=== PATIENT | male | born 1950 | race Caucasian/White ===

== ENCOUNTER 2025-01-11 14:37 | Inpatient (IN) | payer OTHER, MEDICARE, SELFPAY ==
[2025-01-11 11:13] VITALS: BP 158/83
--- NOTE | 2025-01-11 11:58 | ED.GENMED ---
History of Present Illness
General
Chief Complaint: Skin Problem
Source: patient and family
Time Seen by Provider: 01/11/25 11:39
History of Present Illness
History of Present Illness:
This patient is a 74-year-old male with a history of peripheral vascular disease, recent visit to an outside emergency department for leg ulcer, reportedly no longer taking antibiotic, who was sent to the emergency department by a physician family
member because he was told that his cultures were resulted and that he should be in the emergency department. Patient notes mild chills but denies fever, sweats, nausea, vomiting, anorexia, chest pain, shortness of breath. He denies new numbness
or tingling. He does note pain throughout the left lower extremity which is not abrupt in onset. Patient lives at home and typically uses a walker.
Past History
Past History
ED Past Medical History: HTN, Hypercholesterolemia, Hypothyroidism and Other (Fractured ribs with Pneumo due to a fall, severe , peripheral vascular disease, CAD, GI bleed, peptic ulcer disease, a flutter, heart failure)
ED Past Surgical History: Appendectomy
Social History
Tobacco: Former smoker
Alcohol: Daily (formerly heavy)
Drug: None
Personal:
Living: with family
Employment: Retired
Family History
Family History: Other (reviewed and non-contributory)
Phy Exam
Physical Exam
Physical Exam:
GENERAL: Alert , in no apparent distress
EYE: pupils equal and reactive
NECK: Supple, no significant adenopathy.
ENT: o/p clr, mmm.
CARDIAC: Regular rate and rhythm, loud systolic murmur .
LUNGS: Equal breath sounds bilaterally, no acute respiratory distress, mild rales notes bibasilar
ABDOMEN: Soft, without focal tenderness, no r/g, no cvat
NEUROLOGICAL: Alert and oriented, no focal neuro deficits
SKIN: Warm and dry, 7 X 9 cm shallow ulcer with min clear discharge, no purulence/crepitus/bullae. Associated erythema noted bilat ant tib/fib area with chronic venous changes.
MUSCULOSKELETAL: bilat le edema
PSYCH: Normal and appropriate interaction.
Course
Orders/Labs/Results
Orders:
Orders
01/11/25 Lunch
2 Gram Sodium [Sodium, 2 Gram]
At Your Request: Full Participation
Does patient need a safe tray?: No
01/11/25 12:46
Piperacillin/Tazo 3.375 Gram [Zosyn] 3.375 gram in 50 ml IV NOW
Vancomycin [Vancocin] 2,000 mg 0.9% Sodium Chloride 500 ml [Nss] 500 ml IV NOW
01/11/25 12:53
Alcohol Urgent
Basic Metabolic Panel Urgent
Complete Blood Count/No Diff Urgent
Hgntm-Jzeu-Tadimik Urgent
01/11/25 13:08
Add On- LAB Urgent
Tests Added?: etoh
01/11/25 14:08
Admit/Transfer Patient As Directed
Co-Sign Provider:
Level of Care: Inpatient admission
Assign to:: Telemetry
Physician / Group: Raymond
Diagnosis: Cellulites
Reason for Telemetry: Subacute Heart Failure
Date to Stop Telemetry: 01/13/25
Time to Stop Telemetry: 11:00
Reason for Hospitalization: Above
Expected length of stay greater than two midnights?: Yes
ELOS- Estimated Length of Stay in days: 2
I certify the patient meets the requirements for IP care: Yes
PRN Pain Medication Management As Directed
May give lesser potent ordered pain med per pt: Yes
preference::
Protocol:: Medication orders for pain may be administered in a
manner that supports deferring to patient preference
when the pt is:
-Requesting an ordered lesser potent pain medication.
Least to most potent pain medications are defined as:
acetaminophen < NSAID < tramadol < opioids (morphine,
oxycodone, hydromorphone).
- Requesting a lesser dose of the same medication IF
ORDERED.
- Requesting a less intrusive route of administration
if both routes are prescribed by the provider (PO <
IV).
01/11/25 14:11
Code Status As Directed
Resuscitation Status: Full Code
01/11/25 14:27
Cpap [RESP] Routine
Patient to use own unit?: Yes
Set Pressure (cm H2O): 12
Oxygen Liter Flow: 5
01/11/25 14:32
Add On- LAB Routine
Tests Added?: lft
01/11/25 15:09
Blood Culture Q30M
RINA Source: Blood/Venous
Specimen Description:
Blood Culture Q30M
RINA Source: Blood/Venous
Specimen Description:
01/11/25 16:21
0.9% Sodium Chloride [Nss (Preservative Free)] See Protocol IV PRN PRN
FOLic ACID [Folvite] 1 mg PO DAILY
FOLic ACID [Folvite] 1 mg 0.9% Sodium Chloride 50 ml [Nss] 50 ml IV DAILYPRN
Gabapentin [Neurontin] 300 mg PO TID
Lorazepam [Ativan] 1 mg IV Q1HPRN PRN
Lorazepam [Ativan] 1 mg PO Q2HPRN PRN
Lorazepam [Ativan] 2 mg IV Q1HPRN PRN
Losartan [Cozaar] 50 mg PO DAILY
Potassium Chloride [KCl] 10 meq PO DAILY
Tamsulosin [Flomax] 0.4 mg PO DAILY
01/11/25 16:21
ECG [Electrocardiogram (*1)] Routine
Reason for Study: Atrial Fibrillation
Case Management Consult Once
Case Management Consult: Other
Comment: Substance abuse counseling
DIETARY IP CONSULT Routine
Reason for Consult: Nutrition support, possible refeeding guidelines
INFECTIOUS DISEASE CONSULT Routine
Consulting Provider: Noemi Quiroz
Was physician already notified: Yes
WOUND/OSTOMY CONSULT Routine
Reason for Consult: LE wound
WOUND/OSTOMY CONSULT Routine
Reason for Consult: left leg wound
MSAS SCORE As Directed
MSAS Score 0-4: Repeat MSAS every 2 hours until 0-4 for three consecutive assessments, then every 4 hours x 48
hours.
MSAS Score 5-7: For MILD withdrawl symptoms. Repeat MSAS and RASS every 2 hours
MSAS Score 8-11: For MODERATE withdrawal symptoms. Repeat MSAS and RASS every 1 hour. Consider ICU or IMU
level of care.
MSAS Score > 11: For SEVERE withdrawal symptoms. Repeat MSAS and RASS every 1 hour. Notify provider, consider
ICU level of care.
MSAS Additional Instructions: If no improvement or no decrease in score from severe to moderate within 12
hours, consult psychiatry
MSAS Notify Provider: Notify provider if patient requires more than 10 mg of Lorazepam in eight hour period.
01/11/25 17:00
Pantoprazole [Protonix] 40 mg PO DAILY
01/11/25 18:03
Alcohol Urgent
B-Hydroxybutyrate Urgent
Digoxin Routine
GGTP Urgent
Hemoglobin A1c [Glycohemoglobin (HgbA1c)] Routine
Magnesium Urgent
PTT Urgent
Phosphorus Urgent
Prothrombin Time Urgent
TSH Routine
01/11/25 20:00
Apixaban [Eliquis] 5 mg PO BID
Metoprolol Xl [Toprol Xl] 25 mg PO BID
Thiamine Injection 200 mg IV Q12
01/11/25 22:01
Urinalysis Routine
Date Specimen was Collected: 01/11/25
Time Specimen was Collected: 22:00
Urine Drug Abuse Screen Routine
Date Specimen was Collected: 01/11/25
Time Specimen was Collected: 22:00
01/12/25 06:00
Levothyroxine [Synthroid] 125 mcg PO DAILY @ 0600
01/12/25 06:29
Lipid Profile [Cardiovascular Evaluation] IN AM
01/12/25 08:00
Escitalopram Oxalate [Lexapro] 10 mg PO DAILY
01/12/25 12:00
Digoxin [Lanoxin] 250 mcg PO NOON
01/13/25 11:00
DC Protocol for Telemetry ONCE
01/14/25 20:00
Thiamine HCl [Vitamin B1] 100 mg PO BID
Abnormal Lab Results
01/11/25
12:53
Hgb 12.9 L g/dL
(13.0-18.0)
MCH 24.6 L pg
(27.0-31.0)
MCHC 28.8 L g/dL
(33.0-37.0)
RDW 18.6 H %
(11.5-14.5)
Chloride 108 H mmol/L
(98-107)
Glucose 104 H mg/dl
(70-99)
01/11/25 12:53
01/11/25 12:53
Vital Signs
Initial and Last Documented VS:
Initial Vital Signs
Temp Pulse Resp BP Pulse Ox
97.8 F 100 18 158/83 100
01/11/25 11:13 01/11/25 11:13 01/11/25 11:13 01/11/25 11:13 01/11/25 11:13
Last Documented Vital Signs
Temp Pulse Resp BP Pulse Ox
97.5 F 91 16 132/90 97
01/14/25 23:20 01/14/25 23:20 01/14/25 23:20 01/14/25 23:20 01/14/25 23:20
*Pulse Oximetry
SaO2: 100
Oxygen Mode of Delivery: Room air
Patient hypoxic: no
*Critical Care Note
Total Time (30-74mins, 75-104mins- exclusive of procedures): Not Applicable
Update Note
Update Note:
Patient presents to the Emergency Department with leg wound
Number and Complexity of Problems Addressed at the Encounter
� Chronic conditions affecting care:
� Acute Exacerbation and/or Progression of Chronic Illness:
� Differential Diagnosis includes:but not limted to ulcer, osteo, cellulitis, chronic venous stasis, etc etc.
Amount and/or Complexity of Data to be Reviewed and Analyzed
� I performed an independent evaluation of and my interpretation is:
EKG:
CT:
Xrays:
Laboratory Studies:pending at time of dispo
Other:
� Review of other/old records reveals:
� Clinical information was obtained by an independent historian:Dr Leblanc (related to pt) and son in law (at [facility])j--d/w both, Dr Ocasio reviewed prior cultures c/w mult organisms, recommends admission
� Prescriptions/Medications Considered but not given:
� Further testing considered but not performed:
Risk of Complications and/or Morbidity or Mortality of Patient Management
� Social determinants of health affecting care:
� Discussion with other providers (PCP, Hospitalists, Consultants, etc):
� Escalation of care including admission/observation vs risk of discharge considered:Dr Ocasio recommend ester/amadeo, admit, Dr Montoya made aware by Dr Ocasio. Pt stable, not septic apearing.
ED Attending Note
-
Portions of this chart may have been created with voice recognition software.� Occasional wrong word or��sound alike� substitutions may have occurred due to the inherent limitations of voice recognition software.
Discharge Plan
Departure
Patient Disposition: Admit
Date of Disposition: 01/11/25
Time of Disposition: 12:48
Admit to: Med/Surg
Admit to doctor: ansley
Presentation/result/management discussed w/ accepting MD/DO: Hospitalist
Discharge Problem:
Ulcer
Interventions
Interventions:
*Risk Screen - Suicide Last Done: 01/11/25 11:13
*General Assessment Last Done: 01/11/25 11:16
*Neglect/Abuse Screening Last Done: 01/11/25 11:13
*ED- Fall Risk Assessment Last Done: 01/11/25 11:16
*ED COVID-19 Vaccine History Last Done: 01/11/25 11:16
*ED Influenza Vaccine History Last Done: 01/11/25 11:16
*Nursing Disposition Last Done: 01/11/25 16:02
ED-Skin Assessment Last Done: 01/11/25 13:03
Discharge Date and Time
Discharge Date/Time: 01/11/25 16:27
[2025-01-11] MEDS: ZOSYN 50 IV ×2 (12:59→20:54)
[2025-01-11 13:00] VITALS: BP 125/73
[2025-01-11 13:39] LABS: Hematocrit 44.8 % (39.0-52.0); Hemoglobin 12.9 g/dL (13.0-18.0); Mean Corp Hgb Conc. 28.8 g/dL (33.0-37.0); Mean Corpuscular Volume 85.3 fL (80.0-94.0); Platelet Count 146 10^3/uL (130-400); Red Cell Dist. Width 18.6 % (11.5-14.5)
[2025-01-11 13:45] LABS: Blood Urea Nitrogen 13 mg/dl (9-20); Calcium 8.5 mg/dl (8.4-10.2); Carbon Dioxide 26 mmol/L (22-30); Chloride 108 mmol/L (98-107); Estimated Creatinine Clearance 105 ml/min; Glucose 104 mg/dl (70-99); Potassium 4.0 mmol/L (3.5-5.1); Sodium 141 mmol/L (135-145); eGFR > 60.00
[2025-01-11] MEDS: VANCOCIN 540 MG IV (13:49)
--- NOTE | 2025-01-11 14:23 | CON.ID ---
Addendum entered and electronically signed by Noemi Quiroz MD 01/12/25 10:38:
Contact precauations for VRE in the wound
Original Note:
Consultation
-
Date/Time Consultation Requested: 01/11/25 14:05
Date/Time Consultation Performed: 01/11/25 14:24
Requesting Provider: Dr Andrade
Performing Provider: Dr Quiroz
Reason for Consultation: wound cellulitis
Chief Complaint / Past History
Chief Complaint
positive wound culture
History of Present Illness
Mr Quinn is a 74 year old male with history of alcohol use disorder, PVD with chronic venous stasis ulcer of the left lower extremity present for the last 3-4 years, occured spontaneously - no trauma, no prior follow up with wound care. He was
recently seen at [facility] for increasing pain and chills, he was prescribed Augmentin and discharged. Then today he was called back for return to the ER based on the culture which family relate have grown S aureus, VRE and Citrobacter. He
spoke with his family member Dr Andrade who also encouraged him to return to the ER and he elected to come here instead. He endorses chills but denies: sweats, nausea, vomiting, chest pain, shortness of breath, numbness or tingling.
Since arrival here he has been afebrile, bp stable, HR 100, RR teens, wbc 6.8, hgb 12.9, plt 146, no differential was done, na 141, cr 0.9, glucose 104, no cultures have been done he has received doses of vancomycin and zosyn. ID is consulted for
assistance with management.
Past History
Additional Past Medical History:
HTN, Hypercholesterolemia, Hypothyroidism and Other (Fractured ribs with Pneumo due to a fall, severe , peripheral vascular disease, CAD, GI bleed, peptic ulcer disease, a flutter, heart failure
Additional Past Surgical History:
Appendectomy
Allergy History:
No Known Allergies Allergy (Unverified 05/01/15 12:30)
Medications Reviewed: Yes
Social History
Tobacco: Former Smoker
Alcohol: Daily
Drug: None
Family History
Family History: Not Pertinent
Review of Systems
Vital Signs
Temp Pulse Resp BP Pulse Ox
97.8 F 100 18 125/73 97
01/11/25 11:13 01/11/25 11:13 01/11/25 11:13 01/11/25 13:00 01/11/25 13:01
Physical Exam
Physical Exam
Constitutional: No Acute Distress
Cardiovascular: Regular Rate and S1/S2; Negative Murmur or Rub
Pulmonary: Clear and Symmetric; Negative Wheezes, Rales or Rhonchi
Gastrointestinal: Soft, Non Tender, Non Distended and Normal Bowel Sounds
Skin: Warm and Dry; Negative Rash or Jaundice
Lab / Diagnostic Study Results
01/11/25 12:53
01/11/25 12:53
Assessment / Plan
Wound Infection
Venous Stasis Ulceration
Class III obesity
- adjusted body weight 100 kg
- obtain copy of microbiology culture from main line - requested
- wound culture here
- start daptomycin 600 mg IV q24 hours, continue zosyn; stop augmentin
- wound care consult
- HILLARY to be obtained
- elevation for today, likely to add compression tomorrow
Care Review
Plan reviewed with: Physician (Dr Andrade - history)
--- NOTE | 2025-01-11 14:29 | HPS.HSE ---
Family Physician
-
Family Physician: NOT KNOW UNKNOWN - PT DOES
Chief Complaint
-
Bilateral lower extremity pain and chills with rigors
History of Present Illness
Patient is a 74 years old male with history of CHF, preserved EF, hypertension, chronic bilateral lower extremity venous stasis wounds and cellulitis presents to the emergency room with worsening of pain, complaints chills and rigors at home.
Patient was admitted in outside hospital on January 05 with similar complaints. Received 24 hours of IV antibiotics and discharged home on Augmentin. He describes worsening of his symptoms over the last 24 to 48 hours. He was called by the
hospital today to come back with concern for wound care biopsy reports which showed resistant pathogens including Enterococcus faecalis/VRE, Staphylococcus, and Citrobacter. He made decision to come to the [facility] ED. patient denies any respiratory,
gastrointestinal or urinary complaints. Patient with severe alcohol use disorder admitting drinking every night mostly veronica to suppress his pain.
Medical History
Past Medical History
Past Medical History: Reports CHF, HTN, Hypercholesterolemia and Hypothyroidism; Denies CAD
Past Surgical History: Reports None
Social History
Tobacco: Former Smoker
Alcohol: Daily
Drug: None
Personal:
Living: Alone
Employment: Not Employed
Family History
Family History: Not pertinent
Allergies / Home Medications
Allergies reflects when Allergies were last updated in [employer].
Home Medications with original date entered in [employer]
Allergy/Medication List:
Allergies
Allergy/AdvReac Type Severity Reaction Status Date / Time
No Known Allergies Allergy Unverified 05/01/15 12:30
Home Medications
amoxicillin 875 mg-potassium clavulanate 125 mg tablet 1 tab PO BID 01/11/25
apixaban 5 mg tablet (Eliquis) 5 mg PO BID Blood Clot Prevention/Tx 01/11/25
atorvastatin 40 mg tablet (Lipitor) 40 mg PO QPM High Cholesterol 01/11/25
digoxin 250 mcg (0.25 mg) tablet 250 mcg PO DAILY Heart Disease/Condition 01/11/25
escitalopram oxalate 10 mg tablet (Lexapro) 10 mg PO DAILY Mental Health/Anxiety 01/11/25
fluticasone fur. 100 mcg-umeclid 62.5 mcg-vilant 25 mcg inhalat.powder (Trelegy Ellipta) 1 inh inhalation R DAILY Lung/Breathing Issues 01/11/25
gabapentin 300 mg capsule 300 mg PO TID Neurological Condition 01/11/25
hydrochlorothiazide 12.5 mg capsule 12.5 mg PO DAILY Fluid Retention/Swelling 01/11/25
levothyroxine 125 mcg tablet (Synthroid) 125 mcg PO DAILY Thyroid 01/11/25
losartan 50 mg tablet 50 mg PO DAILY Blood Pressure 01/11/25
metoprolol succinate 25 mg tablet,extended release 24 hr (Toprol XL) 25 mg PO BID Heart Disease/Condition 01/11/25
omeprazole 20 mg tablet,delayed release 20 mg PO DAILY Gastrointestinal Issue 01/11/25
potassium chloride 10 mEq tablet,extended release 10 meq PO DAILY Electrolyte Repletion 01/11/25
tamsulosin 0.4 mg capsule 0.4 mg PO DAILY Urinary Issue 01/11/25
Review of Systems
-
A 12 point ROS was completed and negative except as noted: Yes
Physical Exam
Vital Signs
Vital Signs
Temp Pulse Resp BP Pulse Ox
97.8 F 100 18 125/73 97
01/11/25 11:13 01/11/25 11:13 01/11/25 11:13 01/11/25 13:00 01/11/25 13:01
Physical Exam
General: Well Developed, Well Nourished and No Apparent Distress
HEENT: NormoCephalic, Moist mucous membranes and Atraumatic
Respiratory: Clear
Cardiac: S1/S2 and Regular Rhythm; No Murmur or Rub
GI: Soft, Non Tender, Non Distended and Normal Bowel Sounds; No Organomegaly
Rectal: Deferred by Provider
Musculoskeletal: No Clubbing, No Cyanosis and Other (Bilateral lower extremity cellulitis with skin induration and erythema up to the knee, superficial wounds.)
Skin: No Rash
Neuro: Awake, Alert, Oriented, AO x 3 and Nonfocal/grossly intact
Laboratory Results
-
01/11/25 12:53
01/11/25 12:53
Impression/Plan
-
IMPRESSION:
Bilateral lower extremity cellulitis with superficial wounds complicated with chronic venous stasis dermatitis.
Severe alcohol use disorder at risk for withdrawal
Other conditions
Chronic CHF preserved EF
CAD/PAD unspecified
Severe aortic stenosis
Paroxysmal atrial flutter/A-fib
Anticoagulation with Eliquis
Essential hypertension
History of gastrointestinal hemorrhage requiring hospitalization unspecified
Obesity with BMI of 46
Obstructive sleep apnea on CPAP
COPD/former smoker
Hypothyroidism on replacement
Dyslipidemia
Psoriasis
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
Ambulatory dysfunction
Neuropathy
BPH
PLAN:
Bilateral lower extremity cellulitis with wounds complicated with chronic stasis dermatitis.
Wound biopsy cultures from outside hospital reported with Enterococcus faecalis/VRE, Staphylococcus species, and Citrobacter koseri.
Has severe erythema and induration exam
Nontoxic/nonseptic upon presentation
Has been compliant with outpatient antibiotic/Augmentin
Has significant risk for arterial disease. Check arterial ultrasound with HILLARY
Hemoglobin A1c
Discussed with infectious services
Antibiotics: Daptomycin/Zosyn.
Monitor response closely
Wound care
Severe alcohol use disorder.
Admits drinking nightly mostly veronica to suppress pain
At risk for delirium tremens
Alcohol level on admission 76
Start alcohol withdrawal protocol with MSAS assessment and lorazepam
Low threshold for phenobarbital initiation
IV thiamine
Cardiovascular
Acute on chronic CHF preserved EF.
CAD by history
Aortic stenosis.
Essential hypertension
Stable respiratory status, hold the with significant lower extremity edema.
Check pro CHF BNP
Update echo
Provide single dose of Lasix 40 mg IV on 01/11. May hold thiazide.
Follow response. Hopefully reduction of lower extremity edema will facilitate treatment of stasis cellulitis
Continue metoprolol succinate
Continue digoxin, check level.
Continue losartan
Consider SGLT2 inhibitor.
Recently initiated on GLP-1
Continue high potency statin
Paroxysmal A-flutter/fib
Check baseline EKG.
Continue metoprolol and digoxin.
Continue anticoagulation with Eliquis
COPD/former smoker. Plan continue inhaled corticosteroids and bronchodilators.
Exam with no bronchus process
Morbid obesity with BMI of 46
Check hemoglobin A1c
Recently initiated on GLP-1
Monitor weight with diuresis
Obstructive sleep apnea
CPAP at night
Hypothyroidism
Update TSH
Continue levothyroxine
Chronic neuropathy.
Continue gabapentin
History of gastrointestinal hemorrhage requiring hospitalization
Continue prophylaxis with PPI
BPH on Flomax
Chronic ambulatory dysfunction mostly secondary to lower extremity edema, wound and cellulitis/pain
PT assessment
[2025-01-11 15:09] LABS: ALT (SGPT) 24 U/L (0-50); AST (SGOT) 22 U/L (17-59); Albumin 4.0 g/dl (3.5-5.0); Alkaline Phosphatase 104 U/L (38-126); Total Protein 6.8 g/dl (6.3-8.2)
--- NOTE | 2025-01-11 15:32 | CM ---
Chart reviewed and spoke with patient at ED bedside, using [employer] [id number]
Pt lives alone in an 11th floor apartment in [place] with elevator access
has an aide via [employer] 8 hours a day Wed-Wednesday
Dtr Katerina in [place] helps as needed
DME RW
PCP Dr. Monroe Baum
Rx plan yes
Pharmacy [facility] in the same [facility] as Dr. Shilo Baum's office
no hx of VN
no hx of SNF
DCP is to go home with services vs rehab?
Pt lives in [facility]
CM will continue to follow up for any dcp needs
--- NOTE | 2025-01-11 16:20 | PTCARENOTE ---
01/11- Patient transferred and oriented to unit without issue. AAOX3, calm. Skin=warm/pink/dry in intact areas, face mildly flushed. +PulsesX4; Teley #[id number], currently NSR. Patient denies any current needs.
[2025-01-11 16:43] VITALS: BP 149/97; BMI 41.6
[2025-01-11] MEDS: FOLVITE 1 MG PO (18:01)
[2025-01-11] MEDS: COZAAR 50 MG PO (18:01)
[2025-01-11] MEDS: KCL 10 MEQ PO (18:01)
[2025-01-11] MEDS: NEURONTIN 300 MG PO ×2 (18:01→21:06)
[2025-01-11] MEDS: PROTONIX 40 MG PO (18:01)
[2025-01-11] MEDS: FLOMAX PO ×2 (18:01→18:23)
[2025-01-11] MEDS: LASIX 40 MG IV (18:02)
[2025-01-11] MEDS: CUBICIN 12 MG IV (18:04)
[2025-01-11 18:32] LABS: INR 0.99; PT 13.6 Sec (11.4-14.6)
[2025-01-11 18:33] LABS: APTT 30.5 Sec (23.4-35.0)
[2025-01-11 18:38] LABS: GGTP 75 U/L (15-73); Magnesium 1.5 mg/dl (1.6-2.3)
[2025-01-11 18:40] LABS: Digoxin < 0.4 ng/ml (0.8-2.0)
[2025-01-11 19:08] LABS: TSH 4.56 uIU/ml (0.47-4.68)
[2025-01-11] MEDS: SYMBICORT 80/4.5 MCG INHALER 2 PUFF INH (20:04)
[2025-01-11 20:06] VITALS: BP 147/92
[2025-01-11] MEDS: THIAMINE INJECTION 200 MG IV (20:46)
[2025-01-11] MEDS: TOPROL XL 25 MG PO (20:46)
[2025-01-11] MEDS: ELIQUIS 5 MG PO (20:46)
[2025-01-11 22:12] LABS: Urine Character Clear (Clear)
[2025-01-11 22:20] LABS: Urine Red Blood Cell 0-2 /HPF (0-2); Urine Squamous Cell 0-2 /LPF (Few); Urine White Cell 0-2 /HPF (0-5)
[2025-01-11] MEDS: TYLENOL 650 MG PO (22:49)
[2025-01-11 23:25] VITALS: BP 167/105
[2025-01-12] MEDS: ZOSYN 50 IV ×4 (01:11→19:23)
[2025-01-12 03:46] VITALS: BP 140/103
[2025-01-12 05:27] VITALS: BMI 41.3
[2025-01-12] MEDS: SYNTHROID 125 MCG PO (05:59)
[2025-01-12 07:10] LABS: Hematocrit 44.0 % (39.0-52.0); Hemoglobin 12.9 g/dL (13.0-18.0); Mean Corp Hgb Conc. 29.3 g/dL (33.0-37.0); Mean Corpuscular Volume 80.7 fL (80.0-94.0); Nucleated Red Blood Cells % 0 % (-); Platelet Count 145 10^3/uL (130-400); Red Cell Dist. Width 18.5 % (11.5-14.5)
[2025-01-12 07:21] VITALS: BP 150/96
[2025-01-12] MEDS: COZAAR 50 MG PO (07:38)
[2025-01-12] MEDS: TOPROL XL 25 MG PO ×2 (07:38→19:23)
[2025-01-12] MEDS: NEURONTIN 300 MG PO ×3 (07:38→22:06)
[2025-01-12] MEDS: ELIQUIS 5 MG PO ×2 (07:38→19:22)
[2025-01-12] MEDS: FLOMAX 0.4 MG PO (07:38)
[2025-01-12] MEDS: PROTONIX 40 MG PO (07:38)
[2025-01-12] MEDS: THIAMINE INJECTION 200 MG IV ×2 (07:38→19:22)
[2025-01-12] MEDS: LEXAPRO 10 MG PO (07:39)
[2025-01-12] MEDS: FOLVITE 1 MG PO (07:40)
[2025-01-12] MEDS: KCL 10 MEQ PO (07:40)
[2025-01-12] MEDS: SYMBICORT 80/4.5 MCG INHALER 2 PUFF INH ×2 (07:44→19:40)
[2025-01-12] MEDS: SPIRIVA RESPIMAT 2.5 MCG 2 PUFF INH (07:44)
[2025-01-12 07:47] LABS: Blood Urea Nitrogen 12 mg/dl (9-20); Calcium 8.4 mg/dl (8.4-10.2); Carbon Dioxide 30 mmol/L (22-30); Chloride 103 mmol/L (98-107); Estimated Creatinine Clearance 107 ml/min; Glucose 96 mg/dl (70-99); HDL Cholesterol 50 mg/dl; LDL Cholesterol, Calculated 99 mg/dl; Potassium 3.5 mmol/L (3.5-5.1); Sodium 141 mmol/L (135-145); Very Low Density Lipoprotein 41 mg/dl (0-30); eGFR > 60.00
[2025-01-12 08:26] LABS: Glycohemoglobin (HgbA1c) 5.6 % (4.0-5.9)
--- NOTE | 2025-01-12 09:46 | W.PN.ID1 ---
Date of Service
Date of Service: January 12, 2025
Today's Communication
continue daptomycin/zosyn
compression/elevation as tolerated
wound care recommendations
Assessment / Plan
Wound Infection
Venous Stasis Ulceration
Class III obesity
- obtain copy of microbiology culture from main line - requested
- by report S aureus, VRE and Citrobacter
- wound culture here in progress - gram stain moderate GNR
- c/w daptomycin 600 mg IV q24 hours, continue zosyn 3.375 gm IV q6hrs
- wound care consult - will defer final wound care plan to their service
- HILLARY in progress, report pending
- elevation
- compression as tolerated
Chief Complaint
-: Other (wound infection)
Subjective / Review of Systems
afebrile
bp stable
no events overnight
reports pain has gone down from a 10/10 to a 7/10
Vital Signs / Physical Exam
Vital Signs
Vital Signs
Temp Pulse Resp BP Pulse Ox
97.9 F 85 14 150/96 98
01/12/25 07:21 01/12/25 07:51 01/12/25 07:51 01/12/25 07:21 01/12/25 07:51
Physical Exam
Constitutional: No Acute Distress and Chronically Ill
Cardiovascular: Regular Rate and S1/S2; Negative Murmur or Rub
Pulmonary: Clear and Symmetric; Negative Wheezes or Rales
Gastrointestinal: Soft, Non Tender, Non Distended and Normal Bowel Sounds
Skin: Warm and Dry; Negative Rash or Jaundice
Wound: Other (less erythema of the left lower extremity, superficial wound on the LLE with slough, no odor)
Neurological: Awake
Objective Data
Lab Data
Lab Results
01/12/25 06:29
01/12/25 06:29
PT 13.6 Sec (11.4-14.6) 01/11/25 18:03
INR 0.99 01/11/25 18:03
APTT 30.5 Sec (23.4-35.0) 01/11/25 18:03
Estimated Creat Clear 107 ml/min 01/12/25 06:29
Total Bilirubin 0.4 mg/dl (0.2-1.3) 01/11/25 12:53
GGT 75 U/L (15-73) H 01/11/25 18:03
AST 22 U/L (17-59) 01/11/25 12:53
ALT 24 U/L (0-50) 01/11/25 12:53
Alkaline Phosphatase 104 U/L (38-126) 01/11/25 12:53
Most recent labs reviewed.
Micro Results:
01/11/25 15:09 Wound Culture - Pending
Leg - Left Gram Stain - Preliminary
01/11/25 15:09 Blood Culture - Pending
Blood/Venous
01/11/25 15:09 Blood Culture - Pending
Blood/Venous
[2025-01-12] MEDS: LANOXIN 250 MCG PO (11:33)
[2025-01-12] MEDS: TYLENOL 650 MG PO ×2 (11:33→22:06)
--- NOTE | 2025-01-12 11:33 | WOUNDNOTE ---
L ANTERIOR LOWER LEG
--- NOTE | 2025-01-12 11:33 | WOUNDNOTE ---
R MEDIAL ANKLE AND GREAT TOE
--- NOTE | 2025-01-12 11:34 | WOUNDNOTE ---
R PLANTAR DISTAL TO 3RD TOE
--- NOTE | 2025-01-12 11:35 | WOUNDNOTE ---
WON RN note: Patient admitted with ulcer on L leg.
See H&P for complete history. Lives by self, daughter assists as needed.
PMH: Patient is a 74 years old male with history of CHF, preserved EF, hypertension, chronic bilateral lower extremity venous stasis wounds and cellulitis presents to the emergency room with worsening of pain, complaints chills and rigors at home.
Wound Location and type/assessment: Patient admitted with: L leg redness and venous ulcer, weeping moderate amt. of serous drainage. Painful upon cleaning patient states, speaks [place] Citizen understands some Polish. Legs with edema, legs and feet very
dry. + pulses audible with Doppler. R ankle with dry scabs. R medial great toe and plantar foot, distal to 3rd toe with cracked fissures. Residual dried blood at sites, suspect patient unable to properly clean and moisturize feet on own. Sacrum and
heels are intact. L leg wound culture pending. Arterial studies done, both legs TBI 0.68, mild small vessel disease. I&D on consult and reviewed note.
Appetite: Good.
Pressure redistribution devices in place: On Versa care air bed. Leg elevation when sitting. Pillow under calves.
Plan: After cleaning legs and feet with soap and water, moisturized legs/feet with Vaseline, will order Mineral oil to start tomorrow. Honey gel, adaptic and dry dressing applied to L leg. Loernzo wraps knee high applied both legs.
Will confirm orders with hospitalist and updated nurse Kiana who assisted with care and translating.
Updated care plan and will follow as needed.
Note to case management of equipment requested for discharge: VN
Recommend follow up at wound care center upon discharge.
[2025-01-12] MEDS: KCL 40 MEQ PO (11:38)
[2025-01-12 11:39] VITALS: BP 121/75
--- NOTE | 2025-01-12 12:48 | CARDSERVLU ---
Echocardiogram with [facility] completed after protocol screening completed. Allergies verified.
Patent IV site: Right arm median antecubital 20 G PC
IV site flushed with 0.9% NaCl pre and post administration.
Diluted bolus method utilized to enhance visualization of ventricular carty.
Total volume given: ___3.5_ mL
Patient tolerated all procedures well without complications.
[2025-01-12 14:44] VITALS: PULSE 85
--- NOTE | 2025-01-12 15:21 | CM ---
CM reviewed chart, patient seen bedside with use of [place] Citizen registered nurse fetal via video.
CM offered [facility] to patient- declined.
CM offered home therapy/VN to patient per PT recommendations, VN for wound care- patient also declining.
Patient reports he has a caregiver daily who assists/cares for him.
CM will continue to follow.
Plan; home with caregiver, declining [facility]/VN
--- NOTE | 2025-01-12 16:12 | W.PN.HOSP.TC ---
Today's Communication/Plan
-
Continue IV antibiotics
Lower extremity evaluation
Follow wound cultures
Wound care
Telemetry monitoring. ECG with a flutter 2-1, bifascicular block while on beta-carlos and digoxin.
Assessment / Plan
Assessment / Plan
IMPRESSION:
Bilateral lower extremity cellulitis with superficial wounds complicated with chronic venous stasis dermatitis.
Severe alcohol use disorder at risk for withdrawal
Other conditions
Chronic CHF preserved EF
CAD/PAD unspecified
Severe aortic stenosis
Paroxysmal atrial flutter/A-fib
Anticoagulation with Eliquis
Essential hypertension
History of gastrointestinal hemorrhage requiring hospitalization unspecified
Obesity with BMI of 46
Obstructive sleep apnea on CPAP
COPD/former smoker
Hypothyroidism on replacement
Dyslipidemia
Psoriasis
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
Ambulatory dysfunction
Neuropathy
BPH
PLAN:
Bilateral lower extremity cellulitis with wounds complicated with chronic stasis dermatitis.
Wound biopsy cultures from outside hospital reported with Enterococcus faecalis/VRE, Staphylococcus species, and Citrobacter koseri.
Has severe erythema and induration exam
Nontoxic/nonseptic upon presentation
Has been compliant with outpatient antibiotic/Augmentin
Has significant risk for arterial disease. Check arterial ultrasound with [facility]
Hemoglobin A1c
Discussed with infectious services
Antibiotics: Daptomycin/Zosyn.
Follow repeat wound cultures
Elevate extremities
Monitor response closely
Wound care
Severe alcohol use disorder.
Admits drinking nightly mostly veronica to suppress pain
At risk for delirium tremens
Alcohol level on admission 76
Start alcohol withdrawal protocol with MSAS assessment and lorazepam
Low threshold for phenobarbital initiation
IV thiamine
Cardiovascular
Acute on chronic CHF preserved EF.
CAD by history
Aortic stenosis.
Essential hypertension
Updated echo 01/12: LVEF 55 to 60% without regional wall motion abnormalities. Moderate aortic stenosis with aortic valve area and gradient not significantly changed
Has chronic lower extremity edema with no evidence significant volume overload.
BNP only mildly elevated
ECG with a flutter 2-1 and bifascicular block (left anterior fascicular and RBBB)
Continue telemetry monitoring
Status post single dose of Lasix given on 01/11.
Resume preadmission HCTZ on 01/13
Continue metoprolol succinate
Continue digoxin. Dig level less than 0.4.
Continue losartan
Consider SGLT2 inhibitor.
Recently initiated on GLP-1
Continue high potency statin
Paroxysmal A-flutter/fib
ECG with a flutter total volume and bifascicular block
Continue metoprolol and digoxin.
Continue anticoagulation with Eliquis
COPD/former smoker. Plan continue inhaled corticosteroids and bronchodilators.
Exam with no bronchus process
Morbid obesity with BMI of 46
Hemoglobin A1c 5.6
Recently initiated on GLP-1
Monitor weight with diuresis
Obstructive sleep apnea
CPAP at night
Hypothyroidism
Update TSH
Continue levothyroxine
Chronic neuropathy.
Continue gabapentin
History of gastrointestinal hemorrhage requiring hospitalization
Continue prophylaxis with PPI
BPH on Flomax
Chronic ambulatory dysfunction mostly secondary to lower extremity edema, wound and cellulitis/pain
PT assessment
Anticipated Discharge: 24 - 48 hours
Subjective/Interval History
-
Date of Service: January 12, 2025
Objective Data
-
Labs:
Laboratory Results
01/12/25
06:29
WBC 7.5
Hgb 12.9 L
Hct 44.0
Plt Count 145
Sodium 141
Potassium 3.5
Chloride 103
Carbon Dioxide 30
BUN 12
Creatinine 0.9
Glucose 96
Calcium 8.4
Vital Signs:
Vital Signs
Temp Pulse Resp BP Pulse Ox
97.8 F 99 18 121/75 97
01/12/25 11:39 01/12/25 11:39 01/12/25 11:39 01/12/25 11:39 01/12/25 11:39
I&O
01/11/25 01/12/25 01/13/25
06:59 06:59 06:59
Intake Total 120 / 120
Balance 120 / 120
Physical Exam
-
General: Well Developed and No Apparent Distress
HEENT: Normocephalic, Atraumatic and Moist Mucous Membranes
Respiratory: Clear to Auscultation
Cardiac: Regular Rhythm, S1/S2 and Murmur (LSB systolic 3/6); Negative Rub or Gallop
GI: Soft, Nontender, Nondistended and Normal Bowel Sounds; Negative Organomegaly
Rectal: Deferred by Provider
Musculoskeletal: No Clubbing, No Cyanosis and No Edema
Skin: Negative Rash
Neuro: Nonfocal/Grossly Intact
[2025-01-12] MEDS: CUBICIN 12 MG IV (17:19)
[2025-01-12] MEDS: LIPITOR 40 MG PO (17:19)
[2025-01-12 19:00] VITALS: BP 120/75
[2025-01-12 23:43] VITALS: BP 128/82
[2025-01-13] MEDS: ZOSYN 50 IV ×4 (02:24→20:58)
[2025-01-13 03:00] VITALS: BP 140/84
[2025-01-13] MEDS: SYNTHROID 125 MCG PO (05:14)
[2025-01-13 06:00] VITALS: BMI 41.3
[2025-01-13 07:05] VITALS: BP 145/96
--- NOTE | 2025-01-13 08:04 | W.PN.HOSP.TC ---
Today's Communication/Plan
-
Continue current care. No changes.
Assessment / Plan
Assessment / Plan
Initial presentation:
74 years old man with chronic bilateral lower extremity venous stasis wounds and cellulitis presents to the emergency room with worsening of pain, complaints chills and rigors at home. previous hospital wound care biopsy reports Enterococcus
faecalis/VRE, Staphylococcus, and Citrobacter. Patient also has severe alcohol use disorder admitting drinking every night mostly veronica to suppress his pain.
IMPRESSION:
Bilateral lower extremity cellulitis with superficial wounds complicated with chronic venous stasis dermatitis.
Severe alcohol use disorder at risk for withdrawal
Other conditions present prior to admit
Chronic CHF preserved EF
CAD/PAD unspecified
Severe aortic stenosis
Paroxysmal atrial flutter/A-fib
Anticoagulation with Eliquis
Essential hypertension
History of gastrointestinal hemorrhage requiring hospitalization unspecified
Obesity with BMI of 46
Obstructive sleep apnea on CPAP
COPD/former smoker
Hypothyroidism on replacement
Dyslipidemia
Psoriasis
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
Ambulatory dysfunction
Neuropathy
BPH
Hospital course and A/PLAN by problem:
1. Bilateral lower extremity cellulitis with wounds complicated with chronic stasis dermatitis. - main reason for admit
Wound biopsy cultures from outside hospital reported with Enterococcus faecalis/VRE, Staphylococcus species, and Citrobacter koseri.
He has severe erythema and induration exam
Nontoxic/nonseptic upon presentation
He has been compliant with outpatient antibiotic/Augmentin
He Has significant risk for arterial disease.
Checked arterial ultrasound with [facility]:
'No definitive evidence of bilateral lower extremity arterial insufficiency.
Bilateral ankle-brachial indices are within normal limits.
Multiphasic waveforms from bilateral common femoral through popliteal arteries with no velocity elevation to suggest any significant stenoses.
Toe brachial indices bilaterally are marginally reduced (0.68 bilaterally), possibly suggestive of mild/minimal small vessel disease.'
Hemoglobin A1c:
5.6
Discussed with infectious services:
Antibiotics: Daptomycin/Zosyn.
Follow repeat wound cultures
Elevate extremities
Monitor response closely
Wound care
Continue current care
2. Severe alcohol use disorder - chronic, DT risk will continue for 3 weeks
Admits drinking nightly mostly veronica to suppress pain
At risk for delirium tremens
Alcohol level on admission 76
Started alcohol withdrawal protocol with MSAS assessment and lorazepam
(Low threshold for phenobarbital initiation)
IV thiamine
3. Cardiovascular diseases and conditions - several
Acute on chronic CHF preserved EF
Has chronic lower extremity edema with no evidence significant volume overload.
BNP only mildly elevated
Status post single dose of Lasix given on 01/11.
Resumed preadmission HCTZ on 01/13
Recently initiated on GLP-1
Continue digoxin. Dig level less than 0.4.
Consider SGLT2 inhibitor.
CAD by history
Aortic stenosis (murmur heard on exam)
Continue high potency statin
Essential hypertension
Continue metoprolol succinate
Continue losartan
Updated echo 01/12:
LVEF 55 to 60% without regional wall motion abnormalities.
Moderate aortic stenosis with aortic valve area and gradient not significantly changed
Paroxysmal A-flutter/fib
ECG with a flutter total volume and bifascicular block
ECG with a flutter 2-1 and bifascicular block (left anterior fascicular and RBBB)
Continue metoprolol and digoxin.
Continue anticoagulation with Eliquis
Continue telemetry monitoring
4. COPD/former smoker.
Exam with no bronchus process
Plan continue inhaled corticosteroids and bronchodilators.
5. Morbid obesity with BMI of 46
Hemoglobin A1c 5.6
Recently initiated on GLP-1
Monitor weight with diuresis
6. Obstructive sleep apnea - Chronic
Continue CPAP at night
7. Hypothyroidism
TSH - 4.56
Continue levothyroxine
8. Chronic neuropathy.
Continue gabapentin
9. History of gastrointestinal hemorrhage requiring hospitalization
Continue prophylaxis with PPI
10. BPH on Flomax
Continue flomax
11. Chronic ambulatory dysfunction mostly secondary to lower extremity edema, wound and cellulitis/pain
PT assessment
Full code
Eliquis for DVTp
Anticipated Discharge: > 48 hours
Subjective/Interval History
-
Date of Service: January 13, 2025
Feels better than yesterday
Objective Data
-
Labs:
Laboratory Results
01/13/25
06:55
Sodium Pending
Potassium Pending
Chloride Pending
Carbon Dioxide Pending
BUN Pending
Creatinine Pending
Glucose Pending
Calcium Pending
Vital Signs:
Vital Signs
Temp Pulse Resp BP Pulse Ox
98.5 F 93 16 140/84 95
01/13/25 03:00 01/13/25 03:00 01/13/25 03:00 01/13/25 03:00 01/13/25 03:00
I&O
01/12/25 01/13/25 01/14/25
06:59 06:59 06:59
Intake Total 120 / 120
Balance 120 / 120
Review of Systems
-
Unable to obtain full review of systems at this time due to: Language Barrier
History Source: Patient
Physical Exam
-
General: Well Developed, Well Nourished, No Apparent Distress, Comfortable, Conversant and Morbidly Obese
HEENT: Normocephalic, Atraumatic, Moist Mucous Membranes, Nose Appears Normal and Ears Appear Normal
Respiratory: Clear to Auscultation
Cardiac: Regular Rhythm, S1/S2 and Murmur
GI: Soft and Nontender
Musculoskeletal: No Clubbing and No Cyanosis
Skin: Warm
Neuro: Awake, Alert and Oriented
Psych: Calm
Data Reviewed
-
Labs: Labs Reviewed by me
[2025-01-13] MEDS: SYMBICORT 80/4.5 MCG INHALER 2 PUFF INH ×2 (08:12→20:31)
[2025-01-13] MEDS: SPIRIVA RESPIMAT 2.5 MCG 2 PUFF INH (08:12)
[2025-01-13] MEDS: NEURONTIN 300 MG PO ×3 (08:20→20:59)
[2025-01-13] MEDS: ELIQUIS 5 MG PO ×2 (08:21→20:57)
[2025-01-13] MEDS: PROTONIX 40 MG PO (08:21)
[2025-01-13] MEDS: TOPROL XL 25 MG PO ×2 (08:21→20:57)
[2025-01-13] MEDS: FLOMAX 0.4 MG PO (08:21)
[2025-01-13] MEDS: ORETIC 12.5 MG PO (08:22)
[2025-01-13] MEDS: THIAMINE INJECTION 200 MG IV ×2 (08:22→20:57)
[2025-01-13] MEDS: COZAAR 50 MG PO (08:22)
[2025-01-13] MEDS: LEXAPRO 10 MG PO (08:22)
[2025-01-13] MEDS: KCL 10 MEQ PO (08:22)
[2025-01-13] MEDS: HYDROPHOR 1 APPLIC TOPICAL (08:23)
[2025-01-13] MEDS: FOLVITE 1 MG PO (08:25)
[2025-01-13 08:41] LABS: Blood Urea Nitrogen 15 mg/dl (9-20); Calcium 8.4 mg/dl (8.4-10.2); Carbon Dioxide 31 mmol/L (22-30); Chloride 104 mmol/L (98-107); Estimated Creatinine Clearance 87 ml/min; Glucose 106 mg/dl (70-99); Potassium 4.4 mmol/L (3.5-5.1); Sodium 138 mmol/L (135-145); eGFR > 60.00
[2025-01-13 11:56] VITALS: BP 127/82
[2025-01-13] MEDS: LANOXIN 250 MCG PO (12:42)
--- NOTE | 2025-01-13 13:04 | W.PN.ID1 ---
Date of Service
Date of Service: January 13, 2025
Today's Communication
Continue dapto/Zosyn
Assessment / Plan
Wound Infection
Venous Stasis Ulceration
Class III obesity
Alcohol use disorder
- copy of microbiology culture from main line - requested
- by report S aureus, VRE and Citrobacter
- wound culture here in progress - > S. aureus GNR, Enterococcus. Asked micro to workup organism
- c/w daptomycin 600 mg IV q24 hours, continue zosyn 3.375 gm IV q6hrs. Check CK in am
- Appreciate wound care consult - will defer final wound care plan to their service
- [facility] no significant arterial insufficiency
- elevation
- compression as tolerated
Chief Complaint
-: Other (wound infection)
Subjective / Review of Systems
c/o of left leg edema, redness not better
Vital Signs / Physical Exam
Vital Signs
Vital Signs
Temp Pulse Resp BP Pulse Ox
98.4 F 75 20 127/82 96
01/13/25 11:56 01/13/25 11:56 01/13/25 11:56 01/13/25 11:56 01/13/25 11:56
Physical Exam
Constitutional: No Acute Distress and Obese
Pulmonary: Clear
Gastrointestinal: Soft, Non Tender and Non Distended
Extremities: Edema (LLE > RLE) and Erythema (LLE erythema )
Wound: Other (LLE large ulcer, no deep probe)
Objective Data
Lab Data
Lab Results
01/12/25 06:29
01/13/25 06:55
PT 13.6 Sec (11.4-14.6) 01/11/25 18:03
INR 0.99 01/11/25 18:03
APTT 30.5 Sec (23.4-35.0) 01/11/25 18:03
Estimated Creat Clear 87 ml/min 01/13/25 06:55
Total Bilirubin 0.4 mg/dl (0.2-1.3) 01/11/25 12:53
GGT 75 U/L (15-73) H 01/11/25 18:03
AST 22 U/L (17-59) 01/11/25 12:53
ALT 24 U/L (0-50) 01/11/25 12:53
Alkaline Phosphatase 104 U/L (38-126) 01/11/25 12:53
Most recent labs reviewed.
Micro Results:
01/11/25 15:09 Blood Culture - Preliminary
Blood/Venous No Growth in 24 hours- Final report to follow
01/11/25 15:09 Blood Culture - Preliminary
Blood/Venous No Growth in 24 hours- Final report to follow
01/11/25 15:09 Wound Culture - Preliminary
Leg - Left Gram Stain - Preliminary
[2025-01-13 15:52] VITALS: BP 118/74
[2025-01-13] MEDS: LIPITOR 40 MG PO (16:55)
[2025-01-13] MEDS: CUBICIN 12 MG IV (16:58)
[2025-01-13 19:43] VITALS: BP 125/77
--- NOTE | 2025-01-13 23:00 | RESPNOTE ---
PT is ordered CPAP for HS use and is refusing to comply with the therapy. Will attempt again tomorrow.
[2025-01-13 23:14] VITALS: BP 128/77
[2025-01-14] MEDS: ZOSYN 50 IV ×3 (02:13→14:37)
[2025-01-14] MEDS: SYNTHROID 125 MCG PO (05:16)
[2025-01-14 07:00] VITALS: BP 131/88
[2025-01-14 07:33] LABS: Blood Urea Nitrogen 17 mg/dl (9-20); Calcium 8.6 mg/dl (8.4-10.2); Carbon Dioxide 34 mmol/L (22-30); Chloride 101 mmol/L (98-107); Estimated Creatinine Clearance 96 ml/min; Glucose 105 mg/dl (70-99); Potassium 4.2 mmol/L (3.5-5.1); Sodium 136 mmol/L (135-145); eGFR > 60.00
[2025-01-14 07:36] LABS: Hematocrit 44.0 % (39.0-52.0); Hemoglobin 12.4 g/dL (13.0-18.0); Mean Corp Hgb Conc. 28.2 g/dL (33.0-37.0); Mean Corpuscular Volume 86.6 fL (80.0-94.0); Platelet Count 118 10^3/uL (130-400); Red Cell Dist. Width 18.0 % (11.5-14.5)
[2025-01-14] MEDS: SYMBICORT 80/4.5 MCG INHALER 2 PUFF INH ×2 (08:01→19:20)
[2025-01-14] MEDS: SPIRIVA RESPIMAT 2.5 MCG 2 PUFF INH (08:01)
[2025-01-14] MEDS: COZAAR 50 MG PO (08:07)
[2025-01-14] MEDS: KCL 10 MEQ PO (08:07)
[2025-01-14] MEDS: ORETIC 12.5 MG PO (08:07)
[2025-01-14] MEDS: ELIQUIS 5 MG PO ×2 (08:07→20:53)
[2025-01-14] MEDS: THIAMINE INJECTION 200 MG IV (08:08)
[2025-01-14] MEDS: TOPROL XL 25 MG PO ×2 (08:08→20:58)
[2025-01-14] MEDS: HYDROPHOR 1 APPLIC TOPICAL (08:11)
[2025-01-14] MEDS: FOLVITE PO (08:12)
[2025-01-14] MEDS: LEXAPRO PO (08:15)
[2025-01-14] MEDS: FLOMAX PO (08:15)
[2025-01-14] MEDS: NEURONTIN PO ×2 (08:16→16:55)
[2025-01-14] MEDS: PROTONIX PO (08:16)
[2025-01-14 11:00] VITALS: BP 115/66
[2025-01-14] MEDS: LANOXIN 250 MCG PO (12:22)
--- NOTE | 2025-01-14 12:23 | W.PN.HOSP.TC ---
Today's Communication/Plan
-
Monitor vital signs and see plan
Continue with Eliquis
Continue with antibiotic per infectious disease
Follow wound cultures
Assessment / Plan
Assessment / Plan
Initial presentation:
74 years old man with chronic bilateral lower extremity venous stasis wounds and cellulitis presents to the emergency room with worsening of pain, complaints chills and rigors at home. previous hospital wound care biopsy reports Enterococcus
faecalis/VRE, Staphylococcus, and Citrobacter. Patient also has severe alcohol use disorder admitting drinking every night mostly veronica to suppress his pain.
IMPRESSION:
Bilateral lower extremity cellulitis with superficial wounds complicated with chronic venous stasis dermatitis.
Severe alcohol use disorder at risk for withdrawal
Other conditions present prior to admit
Chronic CHF preserved EF
CAD/PAD unspecified
Severe aortic stenosis
Paroxysmal atrial flutter/A-fib
Anticoagulation with Eliquis
Essential hypertension
History of gastrointestinal hemorrhage requiring hospitalization unspecified
Obesity with BMI of 46
Obstructive sleep apnea on CPAP
COPD/former smoker
Hypothyroidism on replacement
Dyslipidemia
Psoriasis
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
Ambulatory dysfunction
Neuropathy
BPH
Hospital course and A/PLAN by problem:
1. Bilateral lower extremity cellulitis with wounds complicated with chronic stasis dermatitis. - main reason for admit
Wound biopsy cultures from outside hospital reported with Enterococcus faecalis/VRE, Staphylococcus species, and Citrobacter koseri.
He has severe erythema and induration exam
Nontoxic/nonseptic upon presentation
He has been compliant with outpatient antibiotic/Augmentin
He Has significant risk for arterial disease.
Checked arterial ultrasound with [facility]:
'No definitive evidence of bilateral lower extremity arterial insufficiency.
Bilateral ankle-brachial indices are within normal limits.
Multiphasic waveforms from bilateral common femoral through popliteal arteries with no velocity elevation to suggest any significant stenoses.
Toe brachial indices bilaterally are marginally reduced (0.68 bilaterally), possibly suggestive of mild/minimal small vessel disease.'
Hemoglobin A1c:
5.6
Discussed with infectious services:
Antibiotics: Daptomycin/Zosyn.
Follow repeat wound cultures
Elevate extremities
Monitor response closely
Wound care, reggie warp b/l LE
2. Severe alcohol use disorder - chronic, DT risk will continue for 3 weeks
Admits drinking nightly mostly veronica to suppress pain
At risk for delirium tremens
Alcohol level on admission 76
Started alcohol withdrawal protocol with MSAS assessment and lorazepam
(Low threshold for phenobarbital initiation)
Finished IV thiamine, now on p.o.
3. Cardiovascular diseases and conditions - several
Acute on chronic CHF preserved EF
Has chronic lower extremity edema with no evidence significant volume overload.
BNP only mildly elevated
Status post single dose of Lasix given on 01/11.
Resumed preadmission HCTZ on 01/13
Recently initiated on GLP-1
Continue digoxin. Dig level less than 0.4.
Consider SGLT2 inhibitor.
CAD by history
Aortic stenosis (murmur heard on exam)
Continue high potency statin
Essential hypertension
Continue metoprolol succinate
Continue losartan
Updated echo 01/12:
LVEF 55 to 60% without regional wall motion abnormalities.
Moderate aortic stenosis with aortic valve area and gradient not significantly changed
Paroxysmal A-flutter/fib
ECG with a flutter total volume and bifascicular block
ECG with a flutter 2-1 and bifascicular block (left anterior fascicular and RBBB)
Continue metoprolol and digoxin.
Continue anticoagulation with Eliquis
4. COPD/former smoker.
Exam with no bronchus process
Plan continue inhaled corticosteroids and bronchodilators.
5. Morbid obesity with BMI of 46
Hemoglobin A1c 5.6
Recently initiated on GLP-1
Monitor weight with diuresis
6. Obstructive sleep apnea - Chronic
Continue CPAP at night
7. Hypothyroidism
TSH - 4.56
Continue levothyroxine
8. Chronic neuropathy.
Continue gabapentin
9. History of gastrointestinal hemorrhage requiring hospitalization
Continue prophylaxis with PPI
10. BPH on Flomax
Continue flomax
11. Chronic ambulatory dysfunction mostly secondary to lower extremity edema, wound and cellulitis/pain
PT assessment rec home health
Full code
Eliquis for DVTp
General: Well Developed and No Apparent Distress
HEENT: Normocephalic, Atraumatic and Moist Mucous Membranes
Respiratory: Clear to Auscultation
Cardiac: Regular Rhythm, S1/S2 and Murmur (LSB systolic 3/6); Negative Rub or Gallop
GI: Soft, Nontender, Nondistended and Normal Bowel Sounds
Musculoskeletal: Edema,+reggie wrap LE b/l
Neuro: Nonfocal/Grossly Intact
Anticipated Discharge: 24 - 48 hours
Subjective/Interval History
-
Date of Service: January 14, 2025
denies fever,does complain of occasional swelling LE
Objective Data
-
Labs:
Laboratory Results
01/14/25
06:20
WBC 5.6
Hgb 12.4 L
Hct 44.0
Plt Count 118 L
Sodium 136
Potassium 4.2
Chloride 101
Carbon Dioxide 34 H
BUN 17
Creatinine 1.0
Glucose 105 H
Calcium 8.6
Vital Signs:
Vital Signs
Temp Pulse Resp BP Pulse Ox
97.5 F 63 12 115/66 98
01/14/25 11:00 01/14/25 11:00 01/14/25 11:00 01/14/25 11:00 01/14/25 11:00
I&O
01/13/25 01/14/25 01/15/25
06:59 06:59 06:59
Intake Total 1240 / 1240
Balance 1240 / 1240
[2025-01-14 15:00] VITALS: BP 119/67
[2025-01-14] MEDS: LIPITOR 40 MG PO (16:55)
[2025-01-14] MEDS: CUBICIN 12 MG IV (16:57)
[2025-01-14] MEDS: TYLENOL 650 MG PO (17:08)
--- NOTE | 2025-01-14 18:38 | W.PN.ID1 ---
Date of Service
Date of Service: January 14, 2025
Today's Communication
De-escalate abx to Unasyn.
Assessment / Plan
Wound Infection
Venous Stasis Ulceration
Class III obesity
Alcohol use disorder
- copy of microbiology culture from main line - requested
- by report S aureus, VRE and Citrobacter
- wound culture h - > S. aureus (MSSA) Citrobacter, Kleb pneumo Enterococcus faecalis.
-De-escalate Dapto/Zosyn to Unasyn.
- Appreciate wound care consult - will defer final wound care plan to their service
- [facility] no significant arterial insufficiency
- elevation
- compression thigh high as tolerated
Chief Complaint
-: Other (wound infection)
Subjective / Review of Systems
c/o left thigh/leg swelling
Vital Signs / Physical Exam
Vital Signs
Vital Signs
Temp Pulse Resp BP Pulse Ox
97.4 F 63 12 119/67 98
01/14/25 15:00 01/14/25 15:00 01/14/25 15:00 01/14/25 15:00 01/14/25 15:00
Physical Exam
Constitutional: No Acute Distress and Obese
Pulmonary: Clear
Gastrointestinal: Soft, Non Tender and Non Distended
Extremities: Edema (LLE > RLE) and Erythema (LLE erythema mildly improved. )
Wound: Other (LLE large ulcer, no deep probe)
Objective Data
Lab Data
Lab Results
01/14/25 06:20
01/14/25 06:20
PT 13.6 Sec (11.4-14.6) 01/11/25 18:03
INR 0.99 01/11/25 18:03
APTT 30.5 Sec (23.4-35.0) 01/11/25 18:03
Estimated Creat Clear 96 ml/min 01/14/25 06:20
Total Bilirubin 0.4 mg/dl (0.2-1.3) 01/11/25 12:53
GGT 75 U/L (15-73) H 01/11/25 18:03
AST 22 U/L (17-59) 01/11/25 12:53
ALT 24 U/L (0-50) 01/11/25 12:53
Alkaline Phosphatase 104 U/L (38-126) 01/11/25 12:53
Most recent labs reviewed.
Micro Results:
01/11/25 15:09 Blood Culture - Preliminary
Blood/Venous No Growth in 72 hours- Final report to follow
01/11/25 15:09 Blood Culture - Preliminary
Blood/Venous No Growth in 72 hours- Final report to follow
01/11/25 15:09 Wound Culture - Final
Leg - Left Citrobacter koseri
Klebsiella pneumoniae
Enterococcus faecalis
S aureus-Methicillin Sensitive
Gram Stain - Final
[2025-01-14 19:45] VITALS: BP 147/98
[2025-01-14] MEDS: NEURONTIN 300 MG PO (20:53)
[2025-01-14] MEDS: UNASYN IV (20:54)
[2025-01-14] MEDS: VITAMIN B1 100 MG PO (20:54)
[2025-01-14 23:20] VITALS: BP 132/90
[2025-01-15] MEDS: UNASYN IV ×3 (02:49→13:31)
[2025-01-15 03:20] VITALS: BP 134/86
[2025-01-15] MEDS: SYNTHROID 125 MCG PO (05:15)
[2025-01-15 07:45] VITALS: BP 130/90
[2025-01-15 07:58] LABS: Blood Urea Nitrogen 17 mg/dl (9-20); Calcium 9.1 mg/dl (8.4-10.2); Chloride 100 mmol/L (98-107); Estimated Creatinine Clearance 87 ml/min; Glucose 96 mg/dl (70-99); Potassium 4.7 mmol/L (3.5-5.1); Sodium 139 mmol/L (135-145); eGFR > 60.00
[2025-01-15 08:09] LABS: Carbon Dioxide 32 mmol/L (22-30)
[2025-01-15 08:18] LABS: Hematocrit 43.7 % (39.0-52.0); Hemoglobin 12.5 g/dL (13.0-18.0); Mean Corp Hgb Conc. 28.6 g/dL (33.0-37.0); Mean Corpuscular Volume 84.4 fL (80.0-94.0); Nucleated Red Blood Cells % 0 % (-); Platelet Count 120 10^3/uL (130-400); Red Cell Dist. Width 17.9 % (11.5-14.5)
[2025-01-15] MEDS: SYMBICORT 80/4.5 MCG INHALER 2 PUFF INH ×2 (08:21→19:01)
[2025-01-15] MEDS: SPIRIVA RESPIMAT 2.5 MCG 2 PUFF INH (08:21)
[2025-01-15] MEDS: NEURONTIN 300 MG PO ×3 (08:55→21:05)
[2025-01-15] MEDS: LEXAPRO PO ×2 (08:55→11:30)
[2025-01-15] MEDS: ELIQUIS 5 MG PO ×2 (08:55→20:48)
[2025-01-15] MEDS: ORETIC 12.5 MG PO (08:56)
[2025-01-15] MEDS: PROTONIX 40 MG PO (08:56)
[2025-01-15] MEDS: FLOMAX 0.4 MG PO (08:56)
[2025-01-15] MEDS: FOLVITE 1 MG PO (08:56)
[2025-01-15] MEDS: COZAAR 50 MG PO (08:56)
[2025-01-15] MEDS: KCL 10 MEQ PO (08:57)
[2025-01-15] MEDS: TOPROL XL 25 MG PO ×2 (08:57→20:48)
[2025-01-15] MEDS: VITAMIN B1 PO (09:00)
--- NOTE | 2025-01-15 09:05 | PTCARENOTE ---
Video St[employer] Salesperson used for medication review and assessment. Video gate tender confirmation ID [id number]
[2025-01-15 11:20] VITALS: BP 100/59
[2025-01-15 11:26] LABS: Normal RBC Morphology No
[2025-01-15 11:27] LABS: Hypochromasia 1+; Microcytosis 1+; Spherocytes 1+; Stomatocytes 1+
[2025-01-15] MEDS: LANOXIN 250 MCG PO (13:25)
[2025-01-15] MEDS: LASIX 20 MG IV (13:26)
[2025-01-15] MEDS: HYDROPHOR 1 APPLIC TOPICAL (13:31)
--- NOTE | 2025-01-15 14:41 | W.PN.ID1 ---
Date of Service
Date of Service: January 15, 2025
Today's Communication
- day 5 of antibiotics transition to augmentin based on culture results; can continue to 10 days
- suspect patient will have chronic pink hew of the bilateral lower extremities due to venous stasis
- elevation
- compression thigh high as tolerated
Assessment / Plan
Wound Infection
Venous Stasis Ulceration
Class III obesity
Alcohol use disorder
- 01/11 wound culture S. aureus (MSSA), Citrobacter, Kleb pneumo Enterococcus faecalis.
- day 5 of antibiotics transition to augmentin based on culture results; can continue to 10 days
- suspect patient will have chronic pink hew of the bilateral lower extremities due to venous stasis
- elevation
- compression thigh high as tolerated
- follow up with wound care clinic
Chief Complaint
-: Other (wound infection)
Subjective / Review of Systems
afebrile
bp stable
no events overnight
legs less erythematous
Vital Signs / Physical Exam
Vital Signs
Vital Signs
Temp Pulse Resp BP Pulse Ox
97.6 F 65 20 100/59 95
01/15/25 11:20 01/15/25 13:25 01/15/25 11:20 01/15/25 11:20 01/15/25 11:20
Physical Exam
Constitutional: No Acute Distress
Cardiovascular: Regular Rate and S1/S2; Negative Murmur or Rub
Pulmonary: Clear and Symmetric; Negative Wheezes or Rales
Gastrointestinal: Soft, Non Tender, Non Distended and Normal Bowel Sounds
Skin: Warm, Dry and Rash (mild pinkness of the bilateral lower extremities, superficial ulceration of the L sosa no longer draining, no odor); Negative Jaundice
Objective Data
Lab Data
Lab Results
01/15/25 07:05
01/15/25 07:05
PT 13.6 Sec (11.4-14.6) 01/11/25 18:03
INR 0.99 01/11/25 18:03
APTT 30.5 Sec (23.4-35.0) 01/11/25 18:03
Estimated Creat Clear 87 ml/min 01/15/25 07:05
Total Bilirubin 0.4 mg/dl (0.2-1.3) 01/11/25 12:53
GGT 75 U/L (15-73) H 01/11/25 18:03
AST 22 U/L (17-59) 01/11/25 12:53
ALT 24 U/L (0-50) 01/11/25 12:53
Alkaline Phosphatase 104 U/L (38-126) 01/11/25 12:53
Most recent labs reviewed.
Wound/abscess/other Cult Final 01/14/25-1352
Many Citrobacter koseri
Many Klebsiella pneumoniae
Moderate Enterococcus faecalis
Few S aureus-Methicillin Sensitive
Few Coagulase neg. staphylococcus
Organism 1 Citrobacter koseri
Organism 2 Klebsiella pneumoniae
Organism 3 Enterococcus faecalis
Organism 4 S aureus-Methicillin Sensitive
C. KOSERI K.PNEUMO ENTFCL
M.I.C. RX M.I.C. RX M.I.C. RX
--------- --- --------- --- --------- ---
Amoxicillin/Potas. Clavulanate <=8/4 S <=8/4 S
Ampicillin >16 R >16 R <=2 S
Ampicillin/Sulbactam <=4/2 S 8/4 S
Aztreonam <=4 S <=4 S
Cefazolin <=2 S <=2 S
Clindamycin
Ertapenem <=0.5 S <=0.5 S
Ciprofloxacin <=0.25 S <=0.25 S
Gentamicin <=2 S <=2 S
Gentamicin Synergy Screen <=500 S
Erythromycin
Levofloxacin
Oxacillin
Meropenem <=1 S <=1 S
Piperacillin/Tazobactam <=8 S <=8 S
Tetracycline <=4 S <=4 S
Tobramycin <=2 S <=2 S
Trimethoprim/Sulfamethoxazole <=2/38 S <=2/38 S
Vancomycin 1 S
Micro Results:
01/11/25 15:09 Blood Culture - Preliminary
Blood/Venous No Growth in 72 hours- Final report to follow
01/11/25 15:09 Blood Culture - Preliminary
Blood/Venous No Growth in 72 hours- Final report to follow
01/11/25 15:09 Wound Culture - Final
Leg - Left Citrobacter koseri
Klebsiella pneumoniae
Enterococcus faecalis
S aureus-Methicillin Sensitive
Gram Stain - Final
[2025-01-15 15:04] VITALS: BP 110/65
--- NOTE | 2025-01-15 15:21 | W.PN.HOSP.TC ---
Today's Communication/Plan
-
Continue wound care and IV antibiotics
Significant improvement over the last 3 to 4 days with decrease edema and induration at the lower extremities.
Possibly transition to oral antibiotics over the next 24 to 48 hours
Additional dose of IV Lasix to improve lower extremity edema.
Assessment / Plan
Assessment / Plan
Initial presentation:
74 years old man with chronic bilateral lower extremity venous stasis wounds and cellulitis presents to the emergency room with worsening of pain, complaints chills and rigors at home. previous hospital wound care biopsy reports Enterococcus
faecalis/VRE, Staphylococcus, and Citrobacter. Patient also has severe alcohol use disorder admitting drinking every night mostly veronica to suppress his pain.
IMPRESSION:
Bilateral lower extremity cellulitis with superficial wounds complicated with chronic venous stasis dermatitis.
Severe alcohol use disorder at risk for withdrawal
Other conditions present prior to admit
Chronic CHF preserved EF
CAD/PAD unspecified
Severe aortic stenosis
Paroxysmal atrial flutter/A-fib
Anticoagulation with Eliquis
Essential hypertension
History of gastrointestinal hemorrhage requiring hospitalization unspecified
Obesity with BMI of 46
Obstructive sleep apnea on CPAP
COPD/former smoker
Hypothyroidism on replacement
Dyslipidemia
Psoriasis
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
Ambulatory dysfunction
Neuropathy
BPH
Hospital course and A/PLAN by problem:
1. Bilateral lower extremity cellulitis with wounds complicated with chronic stasis dermatitis. - main reason for admit
Wound biopsy cultures from outside hospital reported with Enterococcus faecalis/VRE, Staphylococcus species, and Citrobacter koseri.
He has severe erythema and induration exam
Nontoxic/nonseptic upon presentation
He has been compliant with outpatient antibiotic/Augmentin
He Has significant risk for arterial disease.
Checked arterial ultrasound with [facility]:
'No definitive evidence of bilateral lower extremity arterial insufficiency.
Bilateral ankle-brachial indices are within normal limits.
Multiphasic waveforms from bilateral common femoral through popliteal arteries with no velocity elevation to suggest any significant stenoses.
Toe brachial indices bilaterally are marginally reduced (0.68 bilaterally), possibly suggestive of mild/minimal small vessel disease.'
Hemoglobin A1c:
5.6
Discussed with infectious services:
Wound culture with MSSA/VRE/Citrobacter
Antibiotics consolidated from daptomycin and Zosyn to Unasyn
Elevate extremities
Monitor response closely
Wound care, reggie warp b/l LE
2. Severe alcohol use disorder - chronic, DT risk will continue for 3 weeks
Admits drinking nightly mostly veronica to suppress pain
At risk for delirium tremens
Alcohol level on admission 76
Started alcohol withdrawal protocol with MSAS assessment and lorazepam
(Low threshold for phenobarbital initiation)
Finished IV thiamine, now on p.o.
3. Cardiovascular diseases and conditions - several
Acute on chronic CHF preserved EF
Has chronic lower extremity edema with no evidence significant volume overload.
BNP only mildly elevated
Status post single dose of Lasix given on 01/11.
Resumed preadmission HCTZ on 01/13
Recently initiated on GLP-1
Continue digoxin. Dig level less than 0.4.
Consider SGLT2 inhibitor.
CAD by history
Aortic stenosis (murmur heard on exam)
Continue high potency statin
Essential hypertension
Continue metoprolol succinate
Continue losartan
Updated echo 01/12:
LVEF 55 to 60% without regional wall motion abnormalities.
Moderate aortic stenosis with aortic valve area and gradient not significantly changed
Paroxysmal A-flutter/fib
ECG with a flutter total volume and bifascicular block
ECG with a flutter 2-1 and bifascicular block (left anterior fascicular and RBBB)
Continue metoprolol and digoxin.
Continue anticoagulation with Eliquis
4. COPD/former smoker.
Exam with no bronchus process
Plan continue inhaled corticosteroids and bronchodilators.
5. Morbid obesity with BMI of 46
Hemoglobin A1c 5.6
Recently initiated on GLP-1
Monitor weight with diuresis
6. Obstructive sleep apnea - Chronic
Continue CPAP at night
7. Hypothyroidism
TSH - 4.56
Continue levothyroxine
8. Chronic neuropathy.
Continue gabapentin
9. History of gastrointestinal hemorrhage requiring hospitalization
Continue prophylaxis with PPI
10. BPH on Flomax
Continue flomax
11. Chronic ambulatory dysfunction mostly secondary to lower extremity edema, wound and cellulitis/pain
PT assessment rec home health
Full code
Eliquis for DVTp
Anticipated Discharge: 24 - 48 hours
Subjective/Interval History
-
Date of Service: January 15, 2025
Objective Data
-
Labs:
Laboratory Results
01/15/25
07:05
WBC 6.4
Hgb 12.5 L
Hct 43.7
Plt Count 120 L
Sodium 139
Potassium 4.7
Chloride 100
Carbon Dioxide 32 H
BUN 17
Creatinine 1.1
Glucose 96
Calcium 9.1
Vital Signs:
Vital Signs
Temp Pulse Resp BP Pulse Ox
97.6 F 65 20 100/59 95
01/15/25 11:20 01/15/25 13:25 01/15/25 11:20 01/15/25 11:20 01/15/25 11:20
I&O
01/14/25 01/15/25 01/16/25
06:59 06:59 06:59
Intake Total 1240 / 1240 780 / 780
Balance 1240 / 1240 780 / 780
Physical Exam
-
General: Well Developed, Well Nourished, No Apparent Distress, Comfortable, Conversant and Morbidly Obese
HEENT: Normocephalic, Atraumatic, Moist Mucous Membranes, Nose Appears Normal and Ears Appear Normal
Respiratory: Clear to Auscultation
Cardiac: Regular Rhythm, S1/S2 and Murmur
GI: Soft and Nontender
Musculoskeletal: No Clubbing and No Cyanosis
Skin: Warm
Neuro: Awake, Alert and Oriented
Psych: Calm
--- NOTE | 2025-01-15 16:03 | PN.CDI ---
CDI
- -
CDI:
Physician Documentation Request
Admit Date: 01/11/25 14:37
Dear Doctor Raymond,
Patient being managed for cellulitis.
History of CHF with preserved EF.
H&P and progress note state 'Acute on chronic CHF preserved EF Has chronic lower extremity edema with no evidence significant volume overload. BNP only mildly elevated. Status post single dose of Lasix given on 01/11.'
No chest xray
Please clarify which of the following accurately represents the acuity of the HFpEF.
Acute on Chronic
Chronic only
____ Other
Use of terms such as suspected, likely, concern for, or probable (associated with a specific diagnosis that is being evaluated, monitored, or treated as if it exists) are acceptable and can be coded in the inpatient setting, when documented at the
time of discharge.
Thank you,
Terri Barron RN, BSN
CDI Specialist
tiger text
Please use your independent medical judgment in providing your response.
[2025-01-15] MEDS: LIPITOR 40 MG PO (17:05)
[2025-01-15 19:00] VITALS: BP 135/76
[2025-01-15] MEDS: VITAMIN B1 100 MG PO (20:48)
[2025-01-15] MEDS: AUGMENTIN 875 MG/125 MG 1 TABLET PO (20:48)
[2025-01-15 23:00] VITALS: BP 134/94
[2025-01-16 03:00] VITALS: BP 123/76
[2025-01-16] MEDS: SYNTHROID 125 MCG PO (06:11)
[2025-01-16 07:00] VITALS: BP 129/93
[2025-01-16] MEDS: SPIRIVA RESPIMAT 2.5 MCG 2 PUFF INH (07:19)
[2025-01-16] MEDS: SYMBICORT 80/4.5 MCG INHALER 2 PUFF INH (07:19)
[2025-01-16] MEDS: NEURONTIN 300 MG PO (07:54)
[2025-01-16] MEDS: ORETIC 12.5 MG PO (07:55)
[2025-01-16] MEDS: KCL 10 MEQ PO (07:55)
[2025-01-16] MEDS: AUGMENTIN 875 MG/125 MG 1 TABLET PO (07:55)
[2025-01-16] MEDS: PROTONIX 40 MG PO (07:55)
[2025-01-16] MEDS: VITAMIN B1 100 MG PO (07:55)
[2025-01-16] MEDS: FOLVITE 1 MG PO (07:55)
[2025-01-16] MEDS: ELIQUIS 5 MG PO (07:55)
[2025-01-16] MEDS: FLOMAX 0.4 MG PO (07:55)
[2025-01-16] MEDS: LEXAPRO PO (07:58)
[2025-01-16] MEDS: HYDROPHOR 1 APPLIC TOPICAL (08:05)
[2025-01-16] MEDS: COZAAR 50 MG PO (08:06)
[2025-01-16] MEDS: TOPROL XL 25 MG PO (08:06)
[2025-01-16 08:44] LABS: Blood Urea Nitrogen 18 mg/dl (9-20); Calcium 9.1 mg/dl (8.4-10.2); Carbon Dioxide 33 mmol/L (22-30); Chloride 99 mmol/L (98-107); Estimated Creatinine Clearance 87 ml/min; Glucose 96 mg/dl (70-99); Potassium 4.4 mmol/L (3.5-5.1); Sodium 138 mmol/L (135-145); eGFR > 60.00
--- NOTE | 2025-01-16 09:51 | W.PN.ID1 ---
Date of Service
Date of Service: January 16, 2025
Today's Communication
day 6 of antibiotics continue augmentin to 10 days
- follow up with wound care clinic
Assessment / Plan
Wound Infection
Venous Stasis Ulceration
Class III obesity
Alcohol use disorder
- 01/11 wound culture S. aureus (MSSA), Citrobacter, Kleb pneumo Enterococcus faecalis.
- day 6 of antibiotics continue augmentin to 10 days
- suspect patient will have chronic pink hew of the bilateral lower extremities due to venous stasis
- elevation
- compression thigh high as tolerated
- follow up with wound care clinic
Chief Complaint
-: Other (wound infection)
Subjective / Review of Systems
afebrile
bp stable
mild residual pinkness of the lower extremities
Vital Signs / Physical Exam
Vital Signs
Vital Signs
Temp Pulse Resp BP Pulse Ox
97.8 F 94 14 129/93 97
01/16/25 07:00 01/16/25 08:06 01/16/25 07:20 01/16/25 08:06 01/16/25 07:20
Physical Exam
Constitutional: No Acute Distress
Cardiovascular: Regular Rate and S1/S2; Negative Murmur or Rub
Pulmonary: Clear and Symmetric; Negative Wheezes or Rales
Gastrointestinal: Soft, Non Tender, Non Distended and Normal Bowel Sounds
Skin: Warm and Dry; Negative Rash or Jaundice
Wound: Other (dressing clean, dry, intact, deferred take down today; right lower extremity resolving erythema)
Objective Data
Lab Data
Lab Results
01/15/25 07:05
01/16/25 07:15
PT 13.6 Sec (11.4-14.6) 01/11/25 18:03
INR 0.99 01/11/25 18:03
APTT 30.5 Sec (23.4-35.0) 01/11/25 18:03
Estimated Creat Clear 87 ml/min 01/16/25 07:15
Total Bilirubin 0.4 mg/dl (0.2-1.3) 01/11/25 12:53
GGT 75 U/L (15-73) H 01/11/25 18:03
AST 22 U/L (17-59) 01/11/25 12:53
ALT 24 U/L (0-50) 01/11/25 12:53
Alkaline Phosphatase 104 U/L (38-126) 01/11/25 12:53
Most recent labs reviewed.
Micro Results:
01/11/25 15:09 Blood Culture - Preliminary
Blood/Venous No Growth in 4 days- Final report to follow
01/11/25 15:09 Blood Culture - Preliminary
Blood/Venous No Growth in 4 days- Final report to follow
01/11/25 15:09 Wound Culture - Final
Leg - Left Citrobacter koseri
Klebsiella pneumoniae
Enterococcus faecalis
S aureus-Methicillin Sensitive
Gram Stain - Final
--- NOTE | 2025-01-16 09:55 | W.DS.TRANS ---
DC Summary - Media Consultant
-
Discharge Instructions:
Discharge Diagnosis/Procedures Acute on chronic venous stasis cellulitis
Diet 2 Gram Sodium
Instructions:
Stand-Alone Forms:
Changes to Home Medications: No
Discharge Medications:
DC Medications w/original date entered in [employer]
apixaban 5 mg tablet (Eliquis) 5 mg PO BID Blood Clot Prevention/Tx 01/11/25
atorvastatin 40 mg tablet (Lipitor) 40 mg PO QPM High Cholesterol 01/11/25
digoxin 250 mcg (0.25 mg) tablet 250 mcg PO DAILY Heart Disease/Condition 01/11/25
escitalopram oxalate 10 mg tablet (Lexapro) 10 mg PO DAILY Mental Health/Anxiety 01/11/25
fluticasone fur. 100 mcg-umeclid 62.5 mcg-vilant 25 mcg inhalat.powder (Trelegy Ellipta) 1 inh inhalation R DAILY Lung/Breathing Issues 01/11/25
gabapentin 300 mg capsule 300 mg PO TID Neurological Condition 01/11/25
hydrochlorothiazide 12.5 mg capsule 12.5 mg PO DAILY Fluid Retention/Swelling 01/11/25
levothyroxine 125 mcg tablet (Synthroid) 125 mcg PO DAILY Thyroid 01/11/25
losartan 50 mg tablet 50 mg PO DAILY Blood Pressure 01/11/25
metoprolol succinate 25 mg tablet,extended release 24 hr (Toprol XL) 25 mg PO BID Heart Disease/Condition 01/11/25
omeprazole 20 mg tablet,delayed release 20 mg PO DAILY Gastrointestinal Issue 01/11/25
potassium chloride 10 mEq tablet,extended release 10 meq PO DAILY Electrolyte Repletion 01/11/25
tamsulosin 0.4 mg capsule 0.4 mg PO DAILY Urinary Issue 01/11/25
amoxicillin 875 mg-potassium clavulanate 125 mg tablet 1 tab PO BID Infection #10 tabs 01/16/25
Home Medication Changes
Pending Results: No
[2025-01-16 11:59] VITALS: BP 108/76
[2025-01-16] MEDS: LANOXIN 250 MCG PO (13:08)
--- NOTE | 2025-01-16 13:16 | CM ---
Patient will d/c home today
Met w/ patient and son bedside. Offered HC services again, declined
Patient has a caregiver/aide via Waiver program 8 hours a day Wed-Wednesday
No further CM needs at this time
Plan: Home, no needs w/ caregiver support
== END 2025-01-16 13:42 | disposition home or self-care (01) | DRG 603 ==
LOC: 4 WEST ACU 14:37
PROVIDERS: Internal Medicine; ADMITTING PHYSICIAN Internal Medicine; CONSULT PHYSICIAN Student in an Organized Health Care Education/Training Program; EMERGENCY PHYSICIAN Emergency Medicine
DX: L03.116 Cellulitis of left lower limb (principal); I50.32 Chronic diastolic (congestive) heart failure; Z68.42 Body mass index [BMI] 45.0-49.9, adult; I48.92 Unspecified atrial flutter; I87.2 Venous insufficiency (chronic) (peripheral); L03.115 Cellulitis of right lower limb; I25.10 Atherosclerotic heart disease of native coronary artery without angina pectoris; I73.9 Peripheral vascular disease, unspecified; I48.0 Paroxysmal atrial fibrillation; I35.0 Nonrheumatic aortic (valve) stenosis; Z79.01 Long term (current) use of anticoagulants; I11.0 Hypertensive heart disease with heart failure; G47.33 Obstructive sleep apnea (adult) (pediatric); J44.9 Chronic obstructive pulmonary disease, unspecified; Z87.891 Personal history of nicotine dependence; E03.9 Hypothyroidism, unspecified; E78.00 Pure hypercholesterolemia, unspecified; H91.93 Unspecified hearing loss, bilateral; L40.9 Psoriasis, unspecified; G62.9 Polyneuropathy, unspecified; N40.0 Benign prostatic hyperplasia without lower urinary tract symptoms; Z79.890 Hormone replacement therapy; Z79.899 Other long term (current) drug therapy; E66.813 Obesity, class 3; I83.029 Varicose veins of left lower extremity with ulcer of unspecified site; F10.20 Alcohol dependence, uncomplicated
CPT/HCPCS: 80048; 80061; 80076; 80162; 80306; 81003; 81015; 82010; 82077; 82550; 82977; 83036; 83735; 83880; 84100; 84443; 85025; 85027; 85610; 85730; 87040; 87070; 87077; 87147; 87186; 87205; 93005; 93306; 93922; 93925; 94640; 96365; 96366; 96367; 97110; 97116; 97163; 99284; J0878; Q9950